=== PATIENT | male | born 2005 | race Hispanic/Latino ===

== ENCOUNTER 2025-02-21 12:48 | Emergency (ER) | payer OTHER ==
[~2025-02-21] VITALS: Ht 172.7 cm; Wt 54.0 kg
[2025-02-21 13:45] VITALS: PULSE 78; RESP 16; TEMP 98.5
[2025-02-21 14:51] VITALS: BP 120/89; PULSE 71; RESP 16; TEMP 98.2; O2SAT 98
== END 2025-02-21 14:50 | disposition home or self-care (01) ==
LOC: ER 13:43
DX: R39.15 Urgency of urination (principal); R30.0 Dysuria
CPT/HCPCS: 99282